=== PATIENT | male | born 1985 | race Hispanic/Latino ===

== ENCOUNTER 2023-01-26 13:55 | Emergency (ER) | payer SELFPAY ==
[~2023-01-26] VITALS: Ht 180.3 cm; Wt 111.1 kg
[2023-01-26 14:10] VITALS: O2SAT 97
[2023-01-26] MEDS ORDERED: TOBRAMYCIN SULFA5 ML OS (15:07)
== END 2023-01-26 15:18 | disposition home or self-care (01) ==
LOC: FSED 14:07
DX: T26.62XA Corrosion of cornea and conjunctival sac, left eye, initial encounter (principal); T52.8X1A Toxic effect of other organic solvents, accidental (unintentional), initial encounter; T15.92XA Foreign body on external eye, part unspecified, left eye, initial encounter; F17.210 Nicotine dependence, cigarettes, uncomplicated
CPT/HCPCS: 99283

== ENCOUNTER 2025-03-16 23:23 | Emergency (ER) | payer SELFPAY ==
[~2025-03-16] VITALS: Ht 180.3 cm; Wt 106.6 kg
[~2025-03-16 23:23] MED LIST: TOBRAMYCIN SULFA5 ML OS
[2025-03-16 23:27] VITALS: PULSE 85; RESP 18; TEMP 98.9
[2025-03-16] MEDS: SODIUM CHLORIDE 0.9% 1000ML 1,000 ML IV STA (23:58)
[2025-03-17] MEDS: LIDOCAINE HCL 1% LOCAL INJ 20 ML VIAL INJ STA (00:11)
[2025-03-17] MEDS ORDERED: DOXYCYCLINE HY100 MG PO (00:31)
[2025-03-17 01:10] VITALS: BP 156/80; PULSE 82; RESP 18; TEMP 98.6; O2SAT 98
== END 2025-03-17 01:10 | disposition home or self-care (01) ==
LOC: FSED 23:35
DX: R11.2 Nausea with vomiting, unspecified (principal); E08.621 Diabetes mellitus due to underlying condition with foot ulcer; E08.65 Diabetes mellitus due to underlying condition with hyperglycemia
CPT/HCPCS: 73630 ×2; 80053; 80307; 85025; 99283; J2003; J2543; J7030